=== PATIENT | male | born 1975 | race Caucasian/White ===

== ENCOUNTER 2016-06-26 06:21 | Emergency (ER) | payer MEDICARE, OTHER ==
[~2016-06-26] VITALS: Ht 175.3 cm; Wt 77.3 kg
[~2016-06-26 06:21] MED LIST: SULF1TAB35 PO; TRAM50TA2 PO
--- NOTE | 2016-06-26 06:24 | ED.REPORT ---
HPI-Rash / Abscess Date of Service Jun 26, 2016 ED Provider: Santos Rodrigez MD A 41 year old male with a previous history of CVA (2010) and IV heroin/meth abuse presents to the ED complaining of an abscess to the left buttock that first appeared 1.5 weeks ago. Patient last injected heroin at 0000. He has had several similar abscesses to the same area. Associated symptoms included subjective fever and minimal drainage from the area a few nights ago. The abscess has become increasingly sore since onset. Patient also reports a GLF last night and injured his right ankle. He last ate a banana at 0500 this morning. Nursing Notes Stated Complaint: ABSCESS ON BUTTOCKS Nursing Notes Reviewed: Yes Allergies: Coded Allergies: Penicillins (Verified Allergy, Unknown, 10/19/14) Scheduled Sulfamethoxazole/Trimeth 800-160 mg (Bactrim DS 800-160 mg) 1 Each Tablet 1 TABLET PO BID Scheduled PRN Tramadol (Tramadol) 50 Mg Tablet 100 MG PO Q6H PRN PRN For Pain General Time Seen by MD: 06:23 Chief Complaint Abscess Hx Obtained From: Patient Arrived By: Walk-in Onset Occurred: More than a week ago... (1.5 weeks) Symptom Duration: Since onset Location: : Buttock (left) Quality: Painful Severity: Current: Mild Severity: Maximum: Moderate Associated with: Reports Fever (Subjective), Reports Joint pain (Left ankle pain) Pertinent Negative: Pt denies other symptoms Recent Healthcare: No recent doctor visit, No recent hospitalization Past Medical History Past Medical History IV drug/meth use Stroke 2010 Denies: Asthma, Diabetes mellitus Past Surgical History Denies Smoking History Current Every Day Smoker Social History Alcohol Use: 3-5 per day Drug Use: IV drugs, Meth Other Social History: Local resident Ambulatory Status Independent Review of Systems Constitutional: Reports: Fever, Denies: Chills Respiratory: Denies: Shortness of breath Musculoskeletal: Reports: Joint pain (Left ankle pain secondary to injury ) Skin: Reports Rash (Abscess to buttock) Complete sys rev & neg: except as marked. Physical Exam Initial Vital Signs Vital Signs (First) Date Time Temp Pulse Resp B/P Pulse Ox O2 Delivery O2 Flow Rate FiO2 06/26/16 06:30 36.5 125 18 149/88 100 Room Air Initial VS: Reviewed Neck: Supple, Non-tender, Full range of motion Neurologic: Alert, Oriented, Nonfocal General/Constitutional: Awake, Alert Skin: Atraumatic, Warm, Dry Abscess Notes: ABSCESS: 20 cm x 10 cm Does not approach anal verge Abscess #1 Location/Condition: Positive: Buttock L..., Erythema surrounding ( Mild), Indurated (Firm Induration) Head / Eyes: Atraumatic, Normocephalic, PERRL ENT: Atraumatic, Airway patent Respiratory / Chest: Atraumatic, No respiratory distress Upper Extremity / MS: Atraumatic, Neurologic intact, Vascular intact Lower Extremity / Pelvis / MS: Atraumatic, Neurologic intact, Vascular intact Abdomen: Atraumatic, Soft Procedures Incision & Drainage Abscess I & D Abscess: 5 cm vertical incision over the abscess to the left buttock Loculations broken up Packed with iodoform gauze and a Holly drain Time: 07:23 Procedure Performed by: ED physician Consent / Setup / Site Prep: Consent from patient, Time-out performed, Hand hygiene observed, Stand sterile technique, Standard surgical scrub, Sterile drapes applied Skin Preparation Agent: Normal saline (1 L) Local Anesthesia: Lidocaine 1% Incised Abscess with Scalpel: #11 Pus Drained: Large, Purulent discharge Irrigation: Yes Post-Procedure / Complications: Packing placed, Drain placed, Culture obtained, Gram stain ordered, Dressing applied, No complications, Condition improved, Tolerated procedure well, Patient stable Re-Eval/Medical Decision Re-Evaluation/Progress #1: Time of Eval: 06:48 Re-Evaluation/Progress Note: Patient is offered admission to drain the abscess. He is requesting I&D in the ED. His concerns are addressed and he is informed of the risks of the operation. Re-Evaluation/Progress #2: Time of Eval: 07:17 Patient Status: Condition improved Re-Evaluation/Progress Note: Patient is informed of the consult with the surgeon. He insists that he would like to have the procedure in the ED. Re-Evaluation/Progress #3: Time of Eval: 07:23 Re-Evaluation/Progress Note: Procedure is performed. Patient tolerates. Re-Evaluation/Progress #4: Time of Eval: 08:59 Patient Status: Condition improved Re-Evaluation/Progress Note: Wound continues to bleed; will replace packing. Consultation : Referral / Consult Name: Eliu Kenrs MD Consulted With: Surgeon Call Returned at: 07:15 Chief Station Engineer: Agrees with eval, Agrees with plan Counseled Regarding: Diagnosis, Need for follow-up, When/why to return to ED Discharge & Departure Impression: Primary Impression: Abscess of left buttock Disposition: Home Discharge Condition All VS Reviewed: Yes Condition: Improved Patient Instructions: Abscess (ED) Additional Instructions: Your emergency department evaluation today included examination and abscess incision & drainage. You tolerated the procedure well. Please take Bactrim as directed and keep the packing in place until you are able to have the area reevaluated. I highly recommend you abstain from heroin or meth use. Consider [facility] option to get on Suboxone next week. Call [phone] to get an appointment first thing next week. To manage the wound on her backside I recommend hot soaks 2 or 3 times a day. Leave the drains in place until Tuesday. Go to urgent care Tuesday to have them reevaluated. You could also come back to the emergency department for reevaluation. Please return to the ED if you begin to experience any new or worsening symptoms including fever, chills, vomiting, worsening pain, redness or swelling. Referrals: Debbie Araujo MD (PCP) [facility] Scribe Attestation Portions of this note were transcribed by Nathan Sandoval. I, Dr. Rodrigez personally performed the history, physical exam and medical decision-making; I reviewed and confirmed the accuracy of the information in the transcribed note. Signed by: Tova Mcarthur, 06/26/16 0830. copies to: Debbie Araujo MD, Kirk H MD Jun 26, 2016 06:24 NATHAN SANDOVAL Jun 26, 2016 06:28
[2016-06-26 06:30] VITALS: BP 149/88; PULSE 125; RESP 18; O2SAT 100
[2016-06-26] MEDS ORDERED: SULF1TAB7 PO (09:13)
== END 2016-06-26 09:22 | disposition home or self-care (01) ==
LOC: SED 06:21
DX: L02.31 Cutaneous abscess of buttock (principal); F17.200 Nicotine dependence, unspecified, uncomplicated; Z86.73 Personal history of transient ischemic attack (TIA), and cerebral infarction without residual deficits; Z88.0 Allergy status to penicillin

== ENCOUNTER 2016-11-10 01:33 | Emergency (ER) | payer MEDICARE ==
[~2016-11-10] VITALS: Ht 177.8 cm; Wt 53.2 kg
[~2016-11-10 01:33] MED LIST changes: +SULF1TAB7 PO
[2016-11-10 01:39] VITALS: BP 142/98; PULSE 118; RESP 20; O2SAT 97
--- NOTE | 2016-11-10 01:42 | ED.REPORT ---
HPI-Rash / Abscess Date of Service Nov 10, 2016 ED Provider: Juwan Franco DO Patient is a 41 year old male with a history of IV drug use who presents to the ED complaining of an abscess on his right shoulder onset 4 days ago. Associated symptoms include swelling and shoulder pain. The patient reports that he does not inject there and thinks he might have gotten bit by a spider. Patient states that he last used heroin earlier today. He has no other complaints at this time. Nursing Notes Stated Complaint: POSSIBLE SPIDER BITE RT ARM Chief Complaint: Skin Rash/Abscess Nursing Notes Reviewed: Yes Allergies: Coded Allergies: Penicillins (Verified Allergy, Unknown, 10/19/14) Scheduled Sulfamethoxazole/Trimeth 800-160 mg (Bactrim DS 800-160 mg) 1 Each Tablet 1 TABLET PO BID Sulfamethoxazole/Trimeth 800-160 mg (Bactrim DS) 1 Each Tablet 1 TABLET PO BID Scheduled PRN Tramadol (Tramadol) 50 Mg Tablet 100 MG PO Q6H PRN PRN For Pain General Time Seen by MD: 01:42 Chief Complaint Abscess Hx Obtained From: Patient Arrived By: Walk-in Onset Occurred: 4 days ago Symptom Duration: Waxes and wanes Location: : Shoulder Quality: Painful Severity: Current: Moderate Recent Healthcare: Recent doctor visit Similar Sx Previous: Yes Past Medical History Past Medical History IV drug/meth use Stroke 2010 Past Surgical History Denies Smoking History Current Every Day Smoker Social History Alcohol Use: 3-5 per day Drug Use: IV drugs, Meth Other Social History: Local resident Ambulatory Status Independent Review of Systems Review of Systems Note: +abscess Constitutional: Denies: Chills, Fever Respiratory: Denies: Non-productive cough, Shortness of breath Musculoskeletal: Reports: Extremity pain (right shoulder), Extremity swelling Skin: Denies Itching, Denies Rash Complete sys rev & neg: except as marked. Physical Exam Initial Vital Signs Vital Signs (First) Date Time Temp Pulse Resp B/P Pulse Ox O2 Delivery O2 Flow Rate FiO2 11/10/16 01:39 36.2 118 20 142/98 97 Room Air Initial VS: Reviewed General/Constitutional: Awake, Alert Skin: Warm, Dry Head / Eyes: Atraumatic, Normocephalic, PERRL, EOMI Respiratory / Chest: Atraumatic, No respiratory distress Upper Extremity / MS: Neurologic intact, Vascular intact baseball sized abscess on the right shoulder Neurologic: Oriented X3, Speech NL Psychiatric: Affect NL, Mood NL Procedures Incision & Drainage Abscess Time: 01:57 Procedure Performed by: ED physician Consent / Setup / Site Prep: Consent from patient, Time-out performed, Hand hygiene observed Location of Abscess: right shoulder Skin Preparation Agent: Betadine Local Anesthesia: Lidocaine 1% Incised Abscess with Scalpel: #11 Pus Drained: Large, Bloody Irrigation: Yes, Copious Post-Procedure / Complications: Packing placed, Culture obtained, Gram stain ordered, Dressing applied, No complications, Condition improved, Tolerated procedure well, Patient stable Re-Eval/Medical Decision Med Decision/Clinical Course Hospitalization with surgical consult recommended but patient declined. Patient states that he will come back tomorrow for a recheck. Re-Evaluation/Progress #1: Time of Eval: 01:49 Re-Evaluation/Progress Note: Discussed plan for I&D of abscess. Patient understands and agrees to plan. All questions were addressed. Re-Evaluation/Progress #2: Time of Eval: 02:07 Re-Evaluation/Progress Note: Discussed plan for wound check and discharge. Patient understands and agrees to plan. All questions were addressed. Counseled Regarding: Diagnosis, Need for follow-up, When/why to return to ED Discharge & Departure Impression: Primary Impression: Abscess Disposition: Home Discharge Condition All VS Reviewed: Yes Condition: Stable Patient Instructions: Abscess (ED) Additional Instructions: We drained the abscess for you today. Keep the wound covered and dry. It is very important that you return tomorrow around 10am for a wound check and to have the packing removed. Take Clindamycin 4x a day for 7 days. You can take ibuprofen/Tylenol as directed for pain. Follow up with the Surgical clinic this week. Return to the emergency department if you develop any new or concerning symptoms including fever, increasing pain, spreading redness, swelling or pus drainage. Referrals: [facility] Attestation Portions of this note were transcribed by Selena Ndiaye. I, Dr. Franco personally performed the history, physical exam and medical decision-making; I reviewed and confirmed the accuracy of the information in the transcribed note. Signed by: Tova Simental, 11/10/16 Juwan Franco DO Nov 10, 2016 01:42 Kimmie Ndiaye Nov 10, 2016 01:51
[2016-11-10] MEDS ORDERED: Clindamycin 150 mg/mL 2 mL Inj IM ONE (01:45)
[2016-11-10] MEDS ORDERED: Lidocaine 1%/Epi 1:100,000 30 mL MDV INFILTRATE ONE (01:45)
[2016-11-10] MEDS ORDERED: Lidocaine 1%-Epi 1:100,000 20 mL Inj ONE (01:52)
== END 2016-11-10 02:44 | disposition home or self-care (01) ==
LOC: SED 01:33
DX: L02.413 Cutaneous abscess of right upper limb (principal); F17.200 Nicotine dependence, unspecified, uncomplicated; Z86.73 Personal history of transient ischemic attack (TIA), and cerebral infarction without residual deficits; Z88.0 Allergy status to penicillin
CPT/HCPCS: 10061; 96372; 99283; J3490

== ENCOUNTER 2016-11-11 20:18 | Emergency (ER) | payer MEDICARE ==
[~2016-11-11] VITALS: Ht 177.8 cm; Wt 77.3 kg
[2016-11-11 20:24] VITALS: BP 139/84; PULSE 106; RESP 20; O2SAT 100
--- NOTE | 2016-11-11 21:30 | ED.REPORT ---
HPI-Rash / Abscess Date of Service Nov 11, 2016 ED Provider: Dr. Franco Pt is a 41 year old male with a hx of IV heroin abuse presenting to the ED for a wound check. He was seen here 2 days ago for an I&D of an abscess on his right upper arm. Denies any fever, chills, nausea, vomiting, SOB or wheezing. He states that it is getting much better in spite of him being unable to fill the antibiotics. Nursing Notes Stated Complaint: NEEDS BANDAGES CHANGED Chief Complaint: Skin Rash/Abscess Nursing Notes Reviewed: Yes Allergies: Coded Allergies: Penicillins (Verified Allergy, Unknown, 11/11/16) Scheduled Sulfamethoxazole/Trimeth 800-160 mg (Bactrim DS 800-160 mg) 1 Each Tablet 1 TABLET PO BID Sulfamethoxazole/Trimeth 800-160 mg (Bactrim DS) 1 Each Tablet 1 TABLET PO BID Scheduled PRN Tramadol (Tramadol) 50 Mg Tablet 100 MG PO Q6H PRN PRN For Pain General Time Seen by MD: 21:29 Chief Complaint Return visit, abscess Hx Obtained From: Patient Arrived By: Walk-in Onset Occurred: 2 days ago Symptom Duration: Since onset Location: : Arm Quality: Painful Severity: Current: No pain currently Severity: Maximum: Severe Recent Healthcare: No recent hospitalization, Recent doctor visit Similar Sx Previous: Yes Past Medical History Past Medical History IV drug/meth use Stroke 2010 Past Surgical History Denies Smoking History Current Every Day Smoker Social History Alcohol Use: 3-5 per day Drug Use: IV drugs, Meth Other Social History: Local resident Ambulatory Status Independent Review of Systems Constitutional: Denies: Chills, Fever Respiratory: Denies: Shortness of breath, Wheezing GI: Denies: Nausea, Vomiting Skin: Reports Rash Complete sys rev & neg: except as marked. Physical Exam Initial Vital Signs Vital Signs (First) Date Time Temp Pulse Resp B/P Pulse Ox O2 Delivery O2 Flow Rate FiO2 11/11/16 20:24 36.7 106 20 139/84 100 Room Air Initial VS: Reviewed Head / Eyes: Atraumatic, Normocephalic, PERRL ENT: Mucous membranes moist, Conjunctiva normal, No scleral icterus Neck: Supple, Non-tender, Full range of motion Respiratory: Breath sounds normal, Clear to auscultation, No respiratory distress Cardiovascular: Regular rate & rhythm, Heart sounds normal, Intact distal pulses Abdomen / GI: Soft, Non-tender, No guarding, No rebound, No distention Neurologic: Alert, Oriented, Nonfocal Psychiatric: Mood/affect normal, Behavior normal, Normal thought content General/Constitutional: Awake, Alert, No acute distress Skin: Warm, Dry, Intact Marked improvement. Post I&D wound on right upper arm healing well. Re-Eval/Medical Decision Med Decision/Clinical Course The abscess is healing well. There is much less induration and erythema. I am going to provide him a take-home pack of clindamycin. He has not been able to fill the Keflex and Bactrim. He continues to use heroin and he plans on doing this for pain control. He is not interested in Suboxone or any other alternatives at this time. I will refer him to [facility] for outpatient care as well. Still recommended 48-72 hour wound check. Re-Evaluation/Progress : Time of Eval: 21:49 Patient Status: Condition improved Re-Evaluation/Progress Note: Discussed plan for discharge. Pt understands and agrees with plan. Counseled Regarding: Diagnosis, Lab results, Need for follow-up, When/why to return to ED Discharge & Departure Impression: Primary Impression: Abscess Additional Impression: Cellulitis Site of cellulitis: extremity Site of cellulitis of extremity: upper extremity Laterality: right Qualified Code: L03.113 - Cellulitis of right upper limb Disposition: Home Discharge Condition All VS Reviewed: Yes Condition: Improved Patient Instructions: Abscess (ED), Cellulitis (ED) Additional Instructions: Clindamycin 4 times daily for the next 7 days. Tylenol or Motrin as directed for pain. Do not abuse heroin. Contact [facility] for possible Suboxone therapy. Follow-up with her primary care physician or the wound care center in the next 48-72 hours. If he has any problems whatsoever in the do not hesitate to come back to the emergency department. Stop taking the clindamycin and have herself tested for Clostridium difficile if you develop diarrhea while taking the clindamycin. Return if he has any problems or any new or worrisome symptoms or if it looks like infection is no longer improving. Referrals: N[facility]CP (PCP) Scribe Attestation Portions of this note were transcribed by Lubna Fish. I, Dr. Franco personally performed the history, physical exam and medical decision-making; I reviewed and confirmed the accuracy of the information in the transcribed note. Signed by : Tova Milton, 11/11/2016. Juwan Franco DO Nov 11, 2016 21:30 LUBNA FISH Nov 11, 2016 21:50
[2016-11-11] MEDS ORDERED: Clindamycin 150 mg/mL 2 mL Inj IM ONE (21:50)
[2016-11-11 23:22] VITALS: BP 139/84; PULSE 95; RESP 20; O2SAT 100
[2016-11-12] MEDS ORDERED: _Clindamycin 150 mg Capsule PO SCH (06:30)
== END 2016-11-11 23:23 | disposition home or self-care (01) ==
LOC: SED 20:18
DX: L02.413 Cutaneous abscess of right upper limb (principal); L03.113 Cellulitis of right upper limb; F17.200 Nicotine dependence, unspecified, uncomplicated; Z86.73 Personal history of transient ischemic attack (TIA), and cerebral infarction without residual deficits; Z88.0 Allergy status to penicillin
CPT/HCPCS: 96372; 99283; J3490

== ENCOUNTER 2016-11-20 21:07 | Emergency (ER) | payer MEDICARE ==
[~2016-11-20] VITALS: Ht 177.8 cm; Wt 77.3 kg
[2016-11-20 21:28] VITALS: BP 116/75; PULSE 106; RESP 16; O2SAT 98
--- NOTE | 2016-11-20 23:46 | ED.REPORT ---
HPI-Rash / Abscess Date of Service Nov 20, 2016 ED Provider: Scott Espino DO Pt is a 41 year old male with a history of recurrent abscesses, IV heroin use and methamphetamine use who presents to the ED complaining of an abscess to his left buttock. He c/o associated buttock pain. He denies diaphoresis, chills, and any other symptoms. The pt presented to the ED on 11/10 and 11/11 for an abscess drainage and recheck for his shoulder. The pt had also presented to the ED on 06/26/16 with a left buttock abscess, reporting that he has had several similar abscesses to the same area. Notes he has been continuing to take clindamycin for his infection, but despite doing this he has developed another abscess Nursing Notes Stated Complaint: ABSCESS ON BUTTOCK Chief Complaint: Skin Rash/Abscess Nursing Notes Reviewed: Yes Allergies: Coded Allergies: Penicillins (Verified Allergy, Unknown, 11/11/16) Scheduled Sulfamethoxazole/Trimeth 800-160 mg (Bactrim DS 800-160 mg) 1 Each Tablet 1 TABLET PO BID Sulfamethoxazole/Trimeth 800-160 mg (Bactrim DS) 1 Each Tablet 1 TABLET PO BID Sulfamethoxazole/Trimeth 800-160 mg (Bactrim DS) 1 Each Tablet 1 TABLET PO BID Scheduled PRN Tramadol (Tramadol) 50 Mg Tablet 100 MG PO Q6H PRN PRN For Pain General Time Seen by MD: 23:46 Chief Complaint Abscess Hx Obtained From: Patient Arrived By: Walk-in Onset Occurred: Onset unknown Symptom Duration: Since onset Location: : Buttock Quality: Painful Severity: Current: Moderate Severity: Maximum: Moderate Recent Healthcare: Recent doctor visit Similar Sx Previous: Yes Past Medical History Past Medical History IV drug/meth use Stroke 2010 Recurrent abscesses Past Surgical History Denies Smoking History Current Every Day Smoker Social History Alcohol Use: 3-5 per day Drug Use: IV drugs (heroin), Meth Other Social History: Local resident Ambulatory Status Independent Review of Systems + buttock pain + buttock swelling Constitutional: Denies: Fever Respiratory: Denies: Non-productive cough, Shortness of breath Complete sys rev & neg: except as marked. Physical Exam Initial Vital Signs Vital Signs (First) Date Time Temp Pulse Resp B/P Pulse Ox O2 Delivery O2 Flow Rate FiO2 11/20/16 21:28 36.9 106 16 116/75 98 Room Air Initial VS: Reviewed Head / Eyes: Atraumatic, Normocephalic Neck: Supple, Full range of motion Respiratory: Breath sounds normal, Clear to auscultation, No respiratory distress Cardiovascular: Regular rate & rhythm, Heart sounds normal, Intact distal pulses Abdomen / GI: Soft, Non-tender Extremities: Vascular intact, Neuro intact Neurologic: Alert, Oriented, Nonfocal Psychiatric: Mood/affect normal, Behavior normal General/Constitutional: Awake, Alert Skin: Warm, Dry 18 cm round area of induration, erythema, and fluctuation of the left lateral buttock Procedures Incision & Drainage Abscess I & D Abscess: 3 cm incision with ABD pad placed Time: 00:54 Procedure Performed by: ED physician Consent / Setup / Site Prep: Consent from patient, Time-out performed (0114) , Hand hygiene observed, Stand sterile technique, Standard surgical scrub, Sterile drapes applied Location of Abscess: Left lateral buttock Skin Preparation Agent: Betadine Local Anesthesia: Lidocaine 1% Incised Abscess with Scalpel: #11 Pus Drained: Large, Purulent discharge, Bloody Irrigation: Yes Post-Procedure / Complications: Packing placed, Culture obtained, Gram stain ordered, Dressing applied, No complications, Condition improved, Tolerated procedure well, Patient stable Re-Eval/Medical Decision Med Decision/Clinical Course I reviewed his old records and did not see a documented wound culture with sensitivity. Abscess culture and sensitivity was sent today. Because he has redeveloped this abscess on clindamycin I am going to treat him with Bactrim. Due to the large cavity of the abscess which required Kerlix gauze to pack, I think he may benefit from a wound care follow-up, and I also referred him to a new primary care provider and advised him to call to get in for follow-up. If he cannot get into either a new primary care, or the wound care center, he can follow-up in the ER in 2-3 days. Patient is aware of the plan. He is feeling much better after the pressure was relieved and abscess was drained. Source of Hx: Old records Re-Evaluation/Progress : Time of Eval: 00:54 Re-Evaluation/Progress Note: Pt rechecked. Drained pt's abscess with his consent. Informed pt of plan for discharge. Pt understands and agrees with plan for discharge. F/U instructions and RTER warnings given. All questions addressed. Counseled Regarding: Diagnosis, Need for follow-up, When/why to return to ED Discharge & Departure Impression: Primary Impression: Abscess of cellulitis of buttock Additional Impressions: Tachycardia IV drug user Disposition: Home Discharge Condition All VS Reviewed: Yes Condition: Stable Patient Instructions: Abscess (ED) Additional Instructions: Thank you for trusting us with your care today. I drained a very large abscess on your left buttock and packed it with Kerlix gauze. Given the large size of this abscess it would be reasonable for you to follow-up with the wound care center. As the clindamycin you have been using has not been effective, I am switching you to Bactrim. The wound was also cultured today and the results should return in 2-3 days. Please follow up with the new primary care provider listed below on Tuesday or Tuesday next week. If you are unable to get in you can also try the wound care center as I believe this abscess is of significant size that you may benefit from follow-up there, also because it has been recurrent. Return to the ER on Tuesday if you are unable to get in with another provider. Return to the ER for any new or worsening symptoms. Referrals: NOP[facility] (PCP) [facility] Scribe Attestation Portions of this note were transcribed by Nabila Ron. I, Dr. Espino personally performed the history, physical exam and medical decision-making; I reviewed and confirmed the accuracy of the information in the transcribed note. Signed by: Tova Hernandez, 11/21/16. copies to: [facility]; [facility]; [facility] Daryl Espino DO Nov 20, 2016 23:46 Nabila Guerra Nov 21, 2016 00:54
[2016-11-21] MEDS ORDERED: Trimethoprim-Sulfa 160 mg-800 mg Tablet PO ONE (01:15)
[2016-11-21] MEDS ORDERED: SULF1TAB7 PO (01:16)
[2016-11-21 01:43] VITALS: BP 122/77; PULSE 92; RESP 16; O2SAT 95
== END 2016-11-21 01:44 | disposition home or self-care (01) ==
LOC: SED 21:07
DX: L02.31 Cutaneous abscess of buttock (principal); R00.0 Tachycardia, unspecified; F11.10 Opioid abuse, uncomplicated; F15.90 Other stimulant use, unspecified, uncomplicated; F17.200 Nicotine dependence, unspecified, uncomplicated; Z88.0 Allergy status to penicillin